=== PATIENT | male | born 1975 | race Hispanic/Latino ===

== ENCOUNTER → 2020-08-11 | Outpatient (CLI) | payer OTHER ==
--- NOTE | 2020-08-11 09:27 | Diagnostic Imaging Report ---
ADDENDUM #1 Upon further evaluation of coronal sequences, some fibers of the anterior talofibular ligament remain intact, which is consistent with partial tear. Updated impression should read as follows: IMPRESSION: 1. Small osteochondral lesion along the lateral aspect of the talar dome measuring up to 7 mm. No evidence of unstable fragment. 2. Partial tear of the anterior talofibular ligament. Additional sprain versus partial tear of the calcaneofibular ligament. 3. Distal portions of spring ligament are poorly visualized, may be secondary to artifact or sequela of remote injury. Signed by: Dr. Russell Jarrett M.D. on 08/11/2020 12:04 PM ORIGINAL REPORT TECHNIQUE: Magnetic resonance imaging of the LEFT ANKLE was performed WITHOUT injected contrast. COMPARISON: None available. HISTORY: Sprain left ankle FINDINGS: LIGAMENTS: Medial Complex: Deltoid ligament remains intact. Distal portions of spring ligament are poorly visualized, may be secondary to artifact or sequela of remote injury. Lateral Complex: Complete tear of the anterior talofibular ligament. Additional sprain versus partial tear of the calcaneofibular ligament. Posterior talofibular and tibiofibular ligaments remain intact. Visualized portions of Lisfranc ligament remains intact. TENDONS: Medial: Intact Lateral: Intact Anterior: Intact Achilles: Intact BONES: Osteochondral lesion along the lateral aspect of the talar dome measures up to 7 mm with associated bone marrow edema and subtle cortical irregularity. No fluid like signal to suggest unstable fragment. No additional acute osseous abnormalities. No infiltrative bone marrow replacing signal abnormality. JOINTS: Cartilage: Osteochondral lesion along the lateral aspect of the talar dome without definite free cartilage fragment. Other: Fluid within the joints is within physiologic limits. SOFT TISSUES: Mild subcutaneous soft tissue edema, greater along the lateral malleolus than the medial malleolus. IMPRESSION: 1. Small osteochondral lesion along the lateral aspect of the talar dome measuring up to 7 mm. No evidence of unstable fragment. 2. Complete tear of the anterior talofibular ligament. Additional sprain versus partial tear of the calcaneofibular ligament. 3. Distal portions of spring ligament are poorly visualized, may be secondary to artifact or sequela of remote injury. Signed by: Dr. Russell Jarrett M.D. on 08/11/2020 9:24 AM
== END ==
LOC: MRI 07:53
PROVIDERS: ATTEND Family Medicine
DX: S93.402D Sprain of unspecified ligament of left ankle, subsequent encounter (principal)